=== PATIENT | male | born 1975 | race Caucasian/White ===

== ENCOUNTER 2024-03-01 03:59 | Inpatient (IN) ==
--- NOTE | 2024-03-01 04:15 | Emergency Department Note ---
History of Present Illness General Chief Complaint: Chest Pain Stated Complaint: CHEST PAIN Time Seen by Provider: 03/01/24 04:08 History of Present Illness Provider Complaint: chest pain Time: 02:30 Duration: constant Onset: during rest Pain Location: left chest Pain Radiation: LUE and neck Severity: moderate Maximum Pain Intensity: 5 Quality: + heaviness Relieved By: + nothing Exacerbated By: + nothing Context: no recent illness, no recent surgery, no recent immobilization, no recent travel, no trauma/injury or no new medications Associated symptoms: no nausea, no vomiting, no diaphoresis, no dyspnea, no syncope, no palpitations, no fever, no cough or no leg swelling Treatments prior to arrival: none Home Medications Medication Instructions Recorded Confirmed Type aspirin 81 mg tablet,delayed 81 mg PO DAILY 05/12/20 10/11/21 History release (Adult Low Dose Aspirin) metoprolol tartrate 25 mg tablet 25 mg PO Q12H 05/12/20 10/11/21 History atorvastatin 40 mg tablet 40 mg PO DAILY #90 tabs 10/11/21 10/11/21 Rx lisinopril 20 mg tablet 20 mg PO DAILY #90 tabs 10/11/21 10/11/21 Rx Allergies Allergy/AdvReac Type Severity Reaction Status Date / Time No Known Allergies Allergy Verified 10/11/21 11:56 Past Med/Surg History Problem List (Updated 03/01/24 @ 05:19 by Orion Leger MD) STEMI (ST elevation myocardial infarction) (Acute) Fatigue Hyperlipidemia DVT prophylaxis Status post percutaneous transluminal coronary angioplasty History of ST elevation myocardial infarction (STEMI) PCI to the LAD 2013, PCI to the LAD 2018 with likely acute marginal thrombosis in 2018 Chest pain (Acute) Elevated troponin (Acute) Elevated lipase (Acute) Tobacco abuse (Acute) Pilonidal cyst with abscess (Acute) Pilonidal cyst with abscess (Acute) Medical History Ischemic cardiomyopathy Marijuana use Chronic alcohol use Impaired glucose tolerance HTN (hypertension) CAD (coronary artery disease) Acute myocardial infarction (09/27/13) Surgical History H/O heart artery stent Family History Other No significant family history Social History Smoking Status: Current every day smoker Tobacco Type: Cigarettes Cigarettes Per Day: 1 pack a day; Do You Dip or Chew Tobacco: Yes (occassionally); Hx Alcohol Use: Yes Alcohol type: beer Hx Substance Use: Yes Last Used Substance: Days (ago) Preferred Language: Citizen Of [place] Communication Ability: Effective Visual Impairment: No Limitations Hearing Ability: Normal Hearing Aid Mechanic Required: No Beliefs That Will Affect Care: None Current Living Situation: Spouse and Family Feels Safe at Home: Yes Assistive Devices: None Physical Exam Vital Signs Vital Signs - 24 hr 03/01/24 04:02 03/01/24 04:11 03/01/24 04:20 Temperature 36.5 C Temperature Source Temporal Artery Scan Pulse Rate 90 95 H 92 H Pulse Rhythm Regular Respiratory Rate 22 22 Respiratory Effort / Characteristics Non-Labored Spontaneous Respiratory Depth Normal Respiratory Pattern Regular Blood Pressure 138/128 H Blood Pressure Mean 131 Blood Pressure Position Sitting Pulse Oximetry 98 98 Oxygen Delivery Method Room Air Room Air Oxygen Flow Rate 0 Sepsis Recent Fever Within 48 Hours No Sepsis New/Unexplained Change in Mental Status N/A Sepsis Action Taken by Nursing No Action Required Physical Exam GENERAL: Patient appears distressed. HENT: Exam performed. - Head: Normocephalic and atraumatic. EYES: Conjunctivae and EOM are normal. Right eye exhibits no discharge. Left eye exhibits no discharge. No scleral icterus. NECK: Normal range of motion. Neck supple. No JVD present. CV: Normal rate, regular rhythm, normal heart sounds and intact distal pulses. There is no peripheral edema. Palpable radial pulses bue. PULM/CHEST: Effort normal and breath sounds normal. No respiratory distress. No stridor. no wheezes. no rales. ABD: The abdomen is soft. There is no tenderness. NEURO: Motor and sensation grossly intact. SKIN: diaphoretic. PSYCH: normal mood and affect. Behavior is normal. Judgment and thought content normal. Course Course 0409: The patient was evaluated in room A2. A complete history and physical exam was performed Cardiac monitoring: An order was placed for continuous cardiac monitoring. The monitor shows a rate of 90 with sinus rhythm interpreted by me EKG shows STEMI. Heart alert called. Patient treated with aspirin. Sublingual nitroglycerin ordered for the patient. 0443: Patient was treated with 2 additional sublingual nitroglycerin 100 fentanyl and 1 mg Ativan. Chest x-ray negative. Dr. Austin at bedside evaluated the patient. He asked for 180 of Brilinta and 5000 units of heparin to be given to the patient. Will plan on taking the patient to the [facility]. Administered Medications Nitroglycerin (Nitroglycerin Sl 0.4 Mg/Tab Tab) 0.4 mg SL Q5M PRN PRN Reason: Chest Pain Stop: 03/31/24 04:11 Last Admin: 03/01/24 04:20 Dose: 0.4 mg Documented By: Admin: 03/01/24 04:18 Dose: 0.4 mg Documented By: MARCEL Discontinued Medications Aspirin (Aspirin Chew 324 Mg) 324 mg PO NOW STA Stop: 03/01/24 04:09 Last Admin: 03/01/24 04:18 Dose: 324 mg Documented By: MARCEL Fentanyl Citrate (Fentanyl Citrate Pf 100 Mcg/2 Ml Vial) 100 mcg IV NOW STA Stop: 03/01/24 04:28 Last Admin: 03/01/24 04:34 Dose: 100 mcg Documented By: [facility] Fentanyl Citrate (Fentanyl Citrate Pf 100 Mcg/2 Ml Vial) Confirm Administered Dose 100 mcg .ROUTE .STK-MED ONE Stop: 03/01/24 04:29 Last Admin: 03/01/24 05:02 Dose: Not Given Documented By: [facility] Heparin Sodium (Porcine) (Heparin Sod (Porcine) 1000 Unit/Ml) 5,000 units IV NOW ONE Stop: 03/01/24 04:44 Last Admin: 03/01/24 04:47 Dose: 5,000 units Documented By: [facility] Co-signed By: YAQUELIN Heparin Sodium/Sodium Chloride (Heparin In Nss Infusion 1000 Unit/500 Ml (2 U/Ml) Bag) Confirm Administered Dose 3,000 units IV .STK-MED ONE Stop: 03/01/24 04:38 Last Admin: 03/01/24 05:13 Dose: 3,000 units Documented By: DAKOTA Lorazepam (Lorazepam 1 Mg/1 Ml Syr Ed Inj Use) 1 mg IV ONE STA Stop: 03/01/24 04:36 Last Admin: 03/01/24 04:39 Dose: 1 mg Documented By: [facility] Lorazepam (Lorazepam 1 Mg/1 Ml Syr Ed Inj Use) Confirm Administered Dose 1 mg .ROUTE .STK-MED ONE Stop: 03/01/24 04:38 Last Admin: 03/01/24 05:04 Dose: Not Given Documented By: [facility] Nicardipine HCl (Nicardipine 2,000 Mcg/20 Ml Syr) Confirm Administered Dose 2,000 mcg .ROUTE .STK-MED ONE Stop: 03/01/24 04:38 Last Admin: 03/01/24 05:14 Dose: 2,000 mcg Documented By: DAKOTA Nitroglycerin (Nitroglycerin Sl 0.4 Mg/Tab Tab) Confirm Administered Dose 0.4 mg .ROUTE .STK-MED ONE Stop: 03/01/24 04:13 Last Admin: 03/01/24 04:18 Dose: Not Given Documented By: MARCEL Nitroglycerin (Nitroglycerin 2% Ointment 30gm Tube) Confirm Administered Dose 18 inch EXT .STK-MED ONE Stop: 03/01/24 04:29 Last Admin: 03/01/24 05:02 Dose: Not Given Documented By: [facility] Nitroglycerin/Dextrose (Nitroglycerin/D5w 100mcg/Ml 20ml Syr) Confirm Administered Dose 2,000 mcg .ROUTE .STK-MED ONE Stop: 03/01/24 04:38 Last Admin: 03/01/24 05:15 Dose: 2,000 mcg Documented By: DAKOTA Ticagrelor (Ticagrelor 90 Mg Tab) 180 mg PO ONE ONE Stop: 03/01/24 04:44 Last Admin: 03/01/24 04:47 Dose: 180 mg Documented By: [facility] Medical Decision Making Laboratory Data Attestation: I reviewed the patient's lab results. 03/01/24 04:15 03/01/24 04:15 Labs: Lab Results 03/01/24 03/01/24 Range/Units 04:15 04:32 WBC 10.84 H (4.8-10.8) K/ul RBC 5.18 (4.70-6.10) M/uL Hgb 16.3 (14.0-18.0) g/dl POC Hgb 16.7 (14.0-18.0) g/dl Hct 47.6 (42.0-52.0) % POC Hct 49 (42-52) % MCV 91.9 (80.0-100.0) fL MCH 31.5 (25.0-34.0) pg MCHC 34.2 (32.0-36.0) g/dL RDW Std Deviation 44.0 (36.4-46.3) fL RDW Coeff of [place] 12.9 (11.5-14.5) % Plt Count 180 (130-400) K/uL MPV 12.8 H (9.4-12.4) fL Immature Gran % (Auto) 0.4 % Neut % (Auto) 72.1 % Lymph % (Auto) 21.4 % [place] % (Auto) 4.2 % Eos % (Auto) 1.1 % Baso % (Auto) 0.8 % Neut # (Auto) 7.81 H (1.40-6.50) K/uL Lymph # (Auto) 2.32 (1.20-3.40) K/uL [place] # (Auto) 0.46 (0.11-0.59) K/uL Eos # (Auto) 0.12 (0.00-0.50) K/uL Baso # (Auto) 0.09 (0.00-0.20) K/uL Immature Gran # (Auto) 0.04 (0.01-0.20) K/uL PT 10.9 (9.0-12.0) Seconds INR 1.0 (0.9-1.1) APTT 25 (21-31) Seconds PTT Ratio 0.9 POC Sodium 135 (135-144) mmol/L Sodium 135 L (136-145) mmol/L POC Potassium 3.5 (3.3-5.0) mmol/L Potassium 3.8 (3.5-5.1) mmol/L POC Chloride 99 L (101-112) mmol/L Chloride 98 (98-107) mmol/L Carbon Dioxide 28 (21-32) mmol/L POC Total CO2 21 L (24-31) mmol/L Anion Gap 9 (3-11) POC Anion Gap 20.0 (16-25) mmol/L POC BUN 9 (7-18) mg/dl BUN 10 (6-23) mg/dl Creatinine 0.74 (0.6-1.4) mg/dl POC Creatinine 0.5 L (0.6-1.3) mg/dl Est Cr Clr Drug Dosing 134.7 ml/min eGFR 110.39 BUN/Creatinine Ratio 13.5 (10-20) Glucose 249 H (70-99(Fasting)) mg/dl POC Glucose (other) 258 H (70-99) mg/dl Calcium 10.1 (8.6-10.3) mg/dl POC Ioniz Calcium Shanda 1.14 (1.12-1.32) mmol/l Magnesium 1.9 (1.7-2.4) mg/dl Total Bilirubin 0.5 (0.2-1.0) mg/dl AST 56 H (13-39) U/L ALT 63 H (7-52) U/L Alkaline Phosphatase 91 (34-104) U/L Total Creatine Kinase 285 H (30-223) U/L B-Natriuretic Peptide 86 (0-100) pg/ml Total Protein 8.2 (6.0-8.3) gm/dl Albumin 4.7 (3.4-5.0) gm/dl Globulin 3.5 (2.5-4.0) gm/dl Albumin/Globulin Ratio 1.3 (0.9-2) Lipase 72 (11-82) U/L TSH 2.304 (0.300-4.500) uIu/ml Imaging Data Chest x-ray: Attestation: I personally reviewed and interpreted this imaging study as follows: My impression: Chest x-ray negative. Airway clear. No pneumothorax. No consolidation. No cardiomegaly or cephalization.. No free air under the diaphragm. No fractures of the skeletal structures. Radiologist's impression: Chest X-Ray 03/01/24 04:08 EXAM: XR chest 1V portable CLINICAL HISTORY: HEART ALERT [facility] INPATIENT TECHNIQUE: An X-ray image of the chest is obtained in AP projection. COMPARISON: No prior studies are available for comparison. FINDINGS: Pulmonary Parenchyma: Increase of bronchovascular markings is noted bilaterally with mild peribronchial cuffing. A small round nodular opacity is noted at right lower zone, correlate with lateral view or CT for better assessment. Lungs are clear bilaterally. No evidence of consolidation, collapse, or focal opacities. No evidence of pleural effusion or pleural thickening. Heart and Mediastinum: Heart size and shape are normal. No mediastinal widening or masses. No hilar or mediastinal lymphadenopathy. Bony Thorax: Bony thorax appears intact without fractures or deformities. Soft Tissues: Soft tissues overlying the chest wall are unremarkable. IMPRESSION: 1. Increase of bronchovascular markings is noted bilaterally with mild peribronchial cuffing. 2. A small round nodular opacity is noted at the right lower zone, correlate with CXR lateral view or CT for better assessment. Electronically signed by Brooks Patrick 03-01-2024 04:57 AM ECG Data Attestation: I personally reviewed and interpreted this ECG as follows: Indication: chest pain Rate (beats per minute): 87 Rhythm: normal sinus Findings: + ST elevation (II, III, aVF V2, V3, ); no prolonged QT MDM Narrative 0409: The patient was evaluated in room A2. A complete history and physical exam was performed Cardiac monitoring: An order was placed for continuous cardiac monitoring. The monitor shows a rate of 90 with sinus rhythm interpreted by me EKG shows STEMI. Heart alert called. Patient treated with aspirin. Sublingual nitroglycerin ordered for the patient. 0443: Patient was treated with 2 additional sublingual nitroglycerin 100 fentanyl and 1 mg Ativan. Chest x-ray negative. Dr. Austin at bedside evaluated the patient. He asked for 180 of Brilinta and 5000 units of heparin to be given to the patient. Will plan on taking the patient to the [facility]. Impression & Plan STEMI (ST elevation myocardial infarction) Critical Care Time Critical Care Time: Yes Total Critical Care Time: 36 I have personally spent greater than 36 minutes of critical care time in the direct management of this patient. This includes bedside care, interpretation of diagnostic studies, and testing, discussion with consultants, patient, and family members, and other required patient management activities. This 36 minutes is in excess of all separately billable procedures. Discharge Plan Visit Data Chief Complaint: Chest Pain Stated Complaint: CHEST PAIN ED Provider: Orion Leger Discharge Problem: STEMI (ST elevation myocardial infarction) Patient Disposition: Admitted As Inpatient Forms Stand Alone Forms: My [facility] [employer] Prescriptions Prescriptions: No Action aspirin [Adult Low Dose Aspirin] 81 mg tablet,delayed release (DR/EC) 81 mg PO DAILY metoprolol tartrate 25 mg tablet 25 mg PO Q12H atorvastatin 40 mg tablet 40 mg PO DAILY Qty: 90 3RF lisinopril 20 mg tablet 20 mg PO DAILY Qty: 90 3RF Referrals Referrals: PCP,NO [Primary Care Provider] - Discharge Problem: STEMI (ST elevation myocardial infarction) Qualifiers: Involved coronary artery: unspecified coronary artery Qualified Code(s): I21.3 - ST elevation (STEMI) myocardial infarction of unspecified site
[2024-03-01] MEDS: ASPIRIN CHEW 324 MG PO STA (04:18)
[2024-03-01] MEDS: NITROGLYCERIN SL 0.4 MG/TAB TAB ONE (04:18)
[2024-03-01] MEDS: NITROGLYCERIN SL 0.4 MG/TAB TAB SL PRN (04:18)
[2024-03-01] MEDS: fentaNYL citrate PF 100 MCG/2 ML VIAL IV STA (04:34)
[2024-03-01] MEDS: LORazepam 1 MG/1 ML SYR ED Inj Use IV STA (04:39)
[2024-03-01 04:44] LABS: iSTAT Creatinine 0.5 mg/dl (0.6-1.3); iSTAT Hemoglobin 16.7 g/dl (14.0-18.0); iSTAT Ionized Calcium 1.14 mmol/l (1.12-1.32); iSTAT Potassium 3.5 mmol/L (3.3-5.0)
[2024-03-01 04:46] LABS: Basophils # (auto) 0.09 K/uL (0.00-0.20); Basophils % (auto) 0.8 %; Eosinophils # (auto) 0.12 K/uL (0.00-0.50); Eosinophils % (auto) 1.1 %; Hematocrit (blood only) 47.6 % (42.0-52.0); Hemoglobin 16.3 g/dl (14.0-18.0); Immature Granulocytes # (auto) 0.04 K/uL (0.01-0.20); Immature Granulocytes % (auto) 0.4 %; Lymphocytes # (auto) 2.32 K/uL (1.20-3.40); Lymphocytes % (auto) 21.4 %; Mean Corpuscular Hemoglobin 31.5 pg (25.0-34.0); Mean Corpuscular Hgb Conc 34.2 g/dL (32.0-36.0); Mean Corpuscular Volume 91.9 fL (80.0-100.0); Mean Platelet Volume 12.8 fL (9.4-12.4); Monocytes # (auto) 0.46 K/uL (0.11-0.59); Monocytes % (auto) 4.2 %; Neutrophils # (auto) 7.81 K/uL (1.40-6.50); Neutrophils % (auto) 72.1 %; Platelet Count 180 K/uL (130-400); RDW Coefficient of Variation 12.9 % (11.5-14.5); Red Blood Count 5.18 M/uL (4.70-6.10); White Blood Count 10.84 K/ul (4.8-10.8)
[2024-03-01] MEDS: HEPARIN SOD (PORCINE) 1000 UNIT/ML IV ONE (04:47)
[2024-03-01] MEDS: TICAGRELOR 90 MG TAB PO ONE (04:47)
--- NOTE | 2024-03-01 04:47 | Pre Anesthesia Assessment ---
Date of Service March 01, 2024 Pre Sedation Assessment Vital Signs Temp Pulse Resp BP Pulse Ox O2 Del Method 03/01/24 04:11 95 H 03/01/24 04:02 97.7 F 90 22 138/128 H 98 Room Air Cardiovascular + regular rate Respiratory + respiratory effort normal Pre-Sedation Airway Assessment Smoking Status: Current every day smoker Hx Sleep Apnea: No Hx Difficult Intubation: No Thyromental Distance: < 3.5 Finger Breadths Oral Cavity: + Dental Abnormalities Mallampati Class: III ASA: ASA4 Procedure Planning Contraindications for Sedation: none Current Medications Reviewed: Yes Notes The planned sedation has been discussed with the patient. Informed Consent was obtained. I have identified the patient, determined the appropriateness of sedation and have assessed the patient immediately prior to the procedure. All medicine(s) and interventions are by my order.
--- NOTE | 2024-03-01 04:49 | Cardiology Consultation ---
Date of Consultation March 01, 2024 Assessment & Plan (1) STEMI (ST elevation myocardial infarction): Presentation consistent with anterior STEMI and recommend proceeding with emergent cardiac catheterization and likely primary PCI. No apparent contraindications to procedure. Discussed risks, benefits, alternatives of procedure with patient and they are willing to proceed. Given IV heparin and ticagrelor 180 mg in the ED. Further recommendations pending findings of coronary angiography. History of Present Illness History of Present Illness Mr. Guevara is a pleasant 49-year-old man here with acute chest pain and ECG co ncerning for acute NE. Patient seen emergently in the ED after heart alert activated on arrival. Past cardiac history remarkable for acute MIx2 initially in 2013 with stent to LAD. Had last NE in 2017 at which time he had severe LAD in-stent restenosis requiring repeat stent and subtotally occluded acute marginal that was medically managed. Has intermittently followed with Dr. Smith since that time. Last echo in 2021 showed ischemic cardiomyopathy with a EF of 45 to 50% with basal inferior akinesis and hypokinetic apical anterior septum. Currently states lost his insurance and not taking any medications. For the last 4 to 5 days has been having stuttering substernal chest pain radiating to his arm reminiscent of what he had before with NE. Last night approximately 7 PM had severe episode of chest pain that lasted for minutes. Was able to go to sleep but then was woken up this morning around 2 AM with severe chest pain, vomiting, diarrhea. On arrival hypertensive, severe pain. ECG showed recurrent anterior ST elevations, old inferior Q waves. Social history: Ongoing smoker, heavy alcohol use up to 12 beers a day Allergies Allergy/AdvReac Type Severity Reaction Status Date / Time No Known Allergies Allergy Verified 10/11/21 11:56 Home Medications Medication Instructions Recorded Confirmed Type aspirin 81 mg tablet,delayed 81 mg PO DAILY 05/12/20 10/11/21 History release (Adult Low Dose Aspirin) metoprolol tartrate 25 mg tablet 25 mg PO Q12H 05/12/20 10/11/21 History atorvastatin 40 mg tablet 40 mg PO DAILY #90 tabs 10/11/21 10/11/21 Rx lisinopril 20 mg tablet 20 mg PO DAILY #90 tabs 10/11/21 10/11/21 Rx Patient History Medical History Ischemic cardiomyopathy Marijuana use Chronic alcohol use Impaired glucose tolerance HTN (hypertension) CAD (coronary artery disease) Acute myocardial infarction (09/27/13) Surgical History H/O heart artery stent Family History Other No significant family history Social History Smoking Status: Current every day smoker Tobacco Type: Cigarettes Cigarettes Per Day: 1 pack per day; Second Hand Exposure: No; Do You Dip or Chew Tobacco: No; Tobacco Cessation Education Requested by Patient: No Hx Alcohol Use: Yes Alcohol type: beer Hx Substance Use: Yes Last Used Substance: Unknown Preferred Language: [place] Communication Ability: Effective Visual Impairment: No Limitations Hearing Ability: Normal Instructional Media Services Technician Required: No Beliefs That Will Affect Care: None Current Living Situation: Significant Other Other Information That Helps Us Care for You: Yes (patient does not have insurance) Feels Safe at Home: Yes Safety Concerns: Feels Safe At This Time Assistive Devices: None Review of Systems Review of Systems: Not completed in setting of emergent situation Physical Exam Physical Exam: General: Uncomfortable HEENT: Sclerae anicteric Lungs: Clear anteriorly Cardiac: Tachycardic, regular, no murmurs Vascular: 2+ radial bilaterally Abdomen: Soft, nontender Extremities: Well perfused, no peripheral edema Neuro: Nonfocal Psych: Alert orient x3, normal affect and mood Results & Data Vital Signs (Past 12 Hours) Vital Signs Temp Pulse Resp BP Pulse Ox O2 Del Method 03/01/24 04:11 95 H 03/01/24 04:02 97.7 F 90 22 138/128 H 98 Room Air PG Care Time/CCT Total # of Minutes Spent Total Time Spent with Patient: Total time spent is greater than 50% in coordination of care (as documented) at patient's floor/unit and/or counseling patient: Coding Level of Care Code 80190 OFFICE CONSULT LVL Diagnoses STEMI (ST elevation myocardial infarction) I21.3
--- NOTE | 2024-03-01 04:57 | XRay Report ---
EXAM: XR chest 1V portable CLINICAL HISTORY: HEART ALERT [facility] INPATIENT TECHNIQUE: An X-ray image of the chest is obtained in AP projection. COMPARISON: No prior studies are available for comparison. FINDINGS: Pulmonary Parenchyma: Increase of bronchovascular markings is noted bilaterally with mild peribronchial cuffing. A small round nodular opacity is noted at right lower zone, correlate with lateral view or CT for better assessment. Lungs are clear bilaterally. No evidence of consolidation, collapse, or focal opacities. No evidence of pleural effusion or pleural thickening. Heart and Mediastinum: Heart size and shape are normal. No mediastinal widening or masses. No hilar or mediastinal lymphadenopathy. Bony Thorax: Bony thorax appears intact without fractures or deformities. Soft Tissues: Soft tissues overlying the chest wall are unremarkable. IMPRESSION: 1. Increase of bronchovascular markings is noted bilaterally with mild peribronchial cuffing. 2. A small round nodular opacity is noted at the right lower zone, correlate with CXR lateral view or CT for better assessment. Electronically signed by Brooks Patrick 03-01-2024 04:57 AM
[2024-03-01 04:58] LABS: Albumin Globulin Ratio 1.3 (0.9-2); Albumin Level 4.7 gm/dl (3.4-5.0); BUN Creatinine Ratio 13.5 (10-20); Bilirubin,Total 0.5 mg/dl (0.2-1.0); Calcium 10.1 mg/dl (8.6-10.3); Creatinine Clr Calc Pharmacy 134.7 ml/min; Globulin 3.5 gm/dl (2.5-4.0); Magnesium 1.9 mg/dl (1.7-2.4); Potassium 3.8 mmol/L (3.5-5.1); Total Protein 8.2 gm/dl (6.0-8.3)
[2024-03-01] MEDS: NITROGLYCERIN 2% OINTMENT 30GM TUBE EXT ONE (05:02)
[2024-03-01] MEDS: fentaNYL citrate PF 100 MCG/2 ML VIAL ONE ×4 (05:02→14:53)
[2024-03-01] MEDS: LORazepam 1 MG/1 ML SYR ED Inj Use ONE (05:04)
[2024-03-01 05:08] LABS: Partial Thromboplastin Ratio 0.9; Partial Thromboplastin Time 25 Seconds (21-31); Prothrombin Time 10.9 Seconds (9.0-12.0)
[2024-03-01 05:13] LABS: Thyroid Stimulating Hormone 2.304 uIu/ml (0.300-4.500)
[2024-03-01] MEDS: niCARdipine 2,000 MCG/20 ML SYR ONE (05:14)
[2024-03-01] MEDS: NITROGLYCERIN/D5W 100MCG/ML 20ML SYR ONE (05:15)
[2024-03-01 05:39] LABS: Troponin I High Sensitivity 992.9 pg/ml (0-20)
[2024-03-01] MEDS: HEPARIN (PORCINE) 1000 UNIT/ML 10 ML (CATH LAB USE ONLY) ONE ×2 (07:14→07:23)
[2024-03-01] MEDS: MIDAZOLAM HCL 1 MG/ML 2ML VIAL ONE ×5 (07:14→07:23)
[2024-03-01] MEDS: OPTIRAY 350 ONE (07:20)
--- NOTE | 2024-03-01 08:25 | Post Anesthesia Assessment ---
Date of Service March 01, 2024 Post Sedation Assessment Vital Signs Temp Pulse Pulse Resp BP BP Pulse Ox 03/01/24 07:59 97.7 F 03/01/24 07:54 03/01/24 07:48 80 18 158/113 H 96 03/01/24 07:39 83 20 97 03/01/24 04:50 82 22 147/106 H 97 03/01/24 04:45 82 22 147/106 H 97 03/01/24 04:40 86 22 168/112 H 96 03/01/24 04:35 95 H 22 160/103 H 96 03/01/24 04:30 92 H 22 152/106 H 96 03/01/24 04:27 91 H 22 143/108 H 98 03/01/24 04:23 91 H 22 161/118 H 03/01/24 04:20 115 H 22 161/118 H 03/01/24 04:20 92 H 22 98 03/01/24 04:18 87 22 128/103 H 95 03/01/24 04:12 87 24 172/117 H 97 03/01/24 04:11 95 H 03/01/24 04:02 97.7 F 90 22 138/128 H 98 O2 Del Method O2 Flow Rate 03/01/24 07:59 03/01/24 07:54 Room Air 03/01/24 07:48 03/01/24 07:39 03/01/24 04:50 Room Air 03/01/24 04:45 Room Air 03/01/24 04:40 Room Air 03/01/24 04:35 Room Air 03/01/24 04:30 Room Air 03/01/24 04:27 Room Air 03/01/24 04:23 03/01/24 04:20 03/01/24 04:20 Room Air 0 03/01/24 04:18 Room Air 03/01/24 04:12 Room Air 03/01/24 04:11 03/01/24 04:02 Room Air Recovery Score Activity: Moves 4 extremities Respiration: Deep Breath/Cough Circulation: +/-20% PreAnes Value Consciousness: Fully Awake Oxygen Saturation: O2 needed for >90% Discharge Sedation Level of Care: Fast Track Phase II Post Sedation Plan On clinical assessment, the patient appears to have tolerated the sedation without complications. Patient is recovering as anticipated. Patient will continue to be monitored by nursing and may be discharged when sedation discharge criteria are met per below protocol. Upon Completions of procedure up to 15 minutes continue every 5 minute vital signs and the P.A.R. score; then discharge to a Phase I or Fast Track to Phase II per the following guidelines: * Discharge Patient to appropriate Phase II area if PAR is 8 or greater or return to pre- procedure baseline. The post - procedure orders will be as directed. * If PAR score is less than 8 or not return to pre-procedure baseline then patient will follow Phase I monitoring till PAR is reached for Phase II. The Phase I may be done in procedure room or may call to secure a Phase I area. * If naloxone or flumazenil are used for reversal, hold in Phase I for continued monitoring from when last reversal dose was given for a minimum of 60 minutes or longer pending the nurse and/or physician discretion of patient condition before discharge to Phase II. Please call the Sedation Physician to re-evaluate and complete post-note for discharge to Phase II area. Do NOT discharge from procedure sedation or Phase 1 until post- sedation evaluation note is complete by procedure /sedation MD Sedation Discharge Instructions to be given to the patient at discharge to home.
--- NOTE | 2024-03-01 08:29 | Post Operative Brief Note ---
Cardiology Brief Post Op Date of Surgery March 01, 2024 Pre & Post Diagnosis Operation Date: 03/01/24 04:30 <No data on this case meets the specified criteria> Procedure PCI to LAD with 2 MARY KAY Insertion of IABP Medical Records Secretary Bhavesh Austin MD Central Communications Specialist Robbie Estimated Blood Loss 30 Findings See Below Severe diffuse proximal to mid LAD disease with in-stent restenosis stenosis up to 98% Ramus widely patent Circumflex small with moderate to severe diffuse disease RCA dominant, subtotal middistal occlusion with [id number] collaterals Successful PCI of LAD with 2 MARY KAY Attempted intervention to RCA but lesion appears more chronic and well collateralized. IABP placed in the setting of complex multivessel disease If remains chest pain-free and hemodynamically stable plan to remove IABP later today. Anesthesia Type RN Sedation Complications none Disposition Accompanied Patient To Recovery: Yes Disposition: Surgical ICU
[2024-03-01 08:46] LABS: Troponin I High Sensitivity 26301.6 pg/ml (0-20)
--- NOTE | 2024-03-01 08:52 | History & Physical Report ---
Date of Service March 01, 2024 Assessment & Plan (1) STEMI (ST elevation myocardial infarction): Plan: 49-year-old male with a history of coronary disease previous stent placed in 2018 presents with chest pain concern for STEMI taken emergently to the [facility] where the patient had in-stent stenosis in his LAD and had 2 drug-eluting stents placed in his LAD. Patient previous had a STEMI in 2014 was noncompliant with medications previous tobacco use and also alcohol and substance abuse. arrives to icu on balloon pump Patient is on aspirin Brilinta atorvastatin, previously has been on metoprolol given HFrEF on lisinopril (2) Chronic alcohol use: Plan: pt on awss scale continue to survey for withdrawal Admission and Anticipated Discharge Date Admission Date: March 01, 2024 History of Present Illness Primary Care Provider: NO PCP pt presented with stuttering angina and concern for STEMI history of Mi in 2013 with stent. in stent stenosis in 2018 with repeat stent, history of compliance challenges, iscmo with EF 45-50% did have emergent stent x 2 of instent stenosis LAD and arrives to icu on inta arotic balloon pump Allergies Allergy/AdvReac Type Severity Reaction Status Date / Time No Known Allergies Allergy Verified 10/11/21 11:56 Home Medications Medication Instructions Recorded Confirmed Type aspirin 81 mg tablet,delayed 81 mg PO DAILY 05/12/20 10/11/21 History release (Adult Low Dose Aspirin) metoprolol tartrate 25 mg tablet 25 mg PO Q12H 05/12/20 10/11/21 History atorvastatin 40 mg tablet 40 mg PO DAILY #90 tabs 10/11/21 10/11/21 Rx lisinopril 20 mg tablet 20 mg PO DAILY #90 tabs 10/11/21 10/11/21 Rx Past Med/Surg History Problem List (Updated 03/01/24 @ 10:09 by Kyleigh Asif MD, [facility]) Alcohol use disorder STEMI (ST elevation myocardial infarction) (Acute) Fatigue Hyperlipidemia DVT prophylaxis Status post percutaneous transluminal coronary angioplasty History of ST elevation myocardial infarction (STEMI) PCI to the LAD 2013, PCI to the LAD 2017 with likely acute marginal thrombosis in 2018 Chest pain (Acute) Elevated troponin (Acute) Elevated lipase (Acute) Tobacco abuse (Acute) Pilonidal cyst with abscess (Acute) Pilonidal cyst with abscess (Acute) Medical History Ischemic cardiomyopathy Marijuana use Chronic alcohol use Impaired glucose tolerance HTN (hypertension) CAD (coronary artery disease) Acute myocardial infarction (09/27/13) Surgical History H/O heart artery stent Family History Other No significant family history Social History Smoking Status: Current every day smoker Tobacco Type: Cigarettes Cigarettes Per Day: 1 pack per day; Second Hand Exposure: No; Do You Dip or Chew Tobacco: No; Tobacco Cessation Education Requested by Patient: No Hx Alcohol Use: Yes Alcohol type: beer Hx Substance Use: Yes Last Used Substance: Unknown Preferred Language: Turkmen Communication Ability: Effective Visual Impairment: No Limitations Hearing Ability: Normal Finisher Screwdown Required: No Beliefs That Will Affect Care: None Current Living Situation: Significant Other Other Information That Helps Us Care for You: Yes (patient does not have insurance) Feels Safe at Home: Yes Safety Concerns: Feels Safe At This Time Assistive Devices: None Physical Exam Physical Exam: Pleasant, no immediate distress, at bedside no chest pain, cardiac exam is regular lungs are clear balloon pump in right groin, distal pulses right leg strong Results & Data Results & Data Vital Signs (Past 12 Hours) Vital Signs Temp Pulse Pulse Resp BP BP Pulse Ox 03/01/24 08:33 76 14 150/117 H 95 03/01/24 08:24 82 20 153/106 H 96 03/01/24 08:23 03/01/24 08:00 83 20 155/103 H 95 03/01/24 07:59 97.7 F 03/01/24 07:54 03/01/24 07:48 80 18 158/113 H 96 03/01/24 07:39 83 20 97 03/01/24 04:50 82 22 147/106 H 97 03/01/24 04:45 82 22 147/106 H 97 03/01/24 04:40 86 22 168/112 H 96 03/01/24 04:35 95 H 22 160/103 H 96 03/01/24 04:30 92 H 22 152/106 H 96 03/01/24 04:27 91 H 22 143/108 H 98 03/01/24 04:23 91 H 22 161/118 H 03/01/24 04:20 115 H 22 161/118 H 03/01/24 04:20 92 H 22 98 03/01/24 04:18 87 22 128/103 H 95 03/01/24 04:12 87 24 172/117 H 97 03/01/24 04:11 95 H 03/01/24 04:02 97.7 F 90 22 138/128 H 98 O2 Del Method O2 Flow Rate 03/01/24 08:33 03/01/24 08:24 03/01/24 08:23 Room Air 03/01/24 08:00 03/01/24 07:59 03/01/24 07:54 Room Air 03/01/24 07:48 03/01/24 07:39 03/01/24 04:50 Room Air 03/01/24 04:45 Room Air 03/01/24 04:40 Room Air 03/01/24 04:35 Room Air 03/01/24 04:30 Room Air 03/01/24 04:27 Room Air 03/01/24 04:23 03/01/24 04:20 03/01/24 04:20 Room Air 0 03/01/24 04:18 Room Air 03/01/24 04:12 Room Air 03/01/24 04:11 03/01/24 04:02 Room Air Laboratory Results review cbc review chemistry review troponin 90K PG Care Time/CCT Total # of Minutes Spent Total Time Spent with Patient: Total time spent is greater than 50% in coordination of care (as documented) at patient's floor/unit and/or counseling patient: Coding Level of Care Code 66861 INT INP/OBS CARE 3/75MIN Diagnoses STEMI (ST elevation myocardial infarction) I21.3 Involved coronary artery: unspecified coronary artery Chronic alcohol use Z72.89 (1) STEMI (ST elevation myocardial infarction) Involved coronary artery: unspecified coronary artery Qualified Code(s): I21.3 - ST elevation (STEMI) myocardial infarction of unspecified site
--- NOTE | 2024-03-01 09:24 | Critical Care Consultation ---
Date of Consultation March 01, 2024 Assessment & Plan (1) STEMI (ST elevation myocardial infarction): (2) Hyperlipidemia: (3) CAD (coronary artery disease): (4) Impaired glucose tolerance: (5) Marijuana use: (6) Alcohol use disorder: (7) Tobacco abuse: Plan -- STEMI Status post drug-eluting stent x 2 in LAD Patient does have significant collaterals because of chronic occlusion of the RCA He was complaining of significant pain for which intra-aortic balloon pump was placed Cardiology will be managing it Continue with dual antiplatelet therapy with high-dose statin TSH within normal limits -- Hypertension On metoprolol 25 mg twice daily as well as lisinopril 20 mg at home Resume the home medications -- Current smoker Approximately 69-[id number]-hybl smoking history --Impaired glucose ICU hypoglycemia protocol -- Heavy alcohol use Drinks 6-12 beers on a daily basis Per the patient on CIWA protocol --Prophylaxis VTE: IPC GI: Pantoprazole Lines: Peripheral, intra-aortic balloon pump from the right groin Diet: Cardiac Plan: Strict ins and outs Trend troponins and EKG Start lisinopril and metoprolol given the systolic blood pressure has been in the 150s Tylenol for the pain Potassium being replaced, follow magnesium and phosphorus Given the heavy alcohol use we will put the patient on CIWA protocol If the patient gets any significant chest pain or worsening chest pain then plan will be to transfer the patient for CABG evaluation If he is able to maintain pain-free then the plan is to discontinue intra-aortic balloon pump with a activated coagulation time is within normal limit Case was discussed with cardiology I have personally spent 42 minutes of critical care time in the direct management of this patient. This is a life/limb threatening event. This includes time spent evaluating patient, direct bedside care, chart review, placing orders, interpretation of diagnostic studies, discussion with consultants, patient, and family members, as well as other required patient management activities. This time is exclusive of all separately billable procedures, and teaching time and separate from and in addition to any other critical care service time. Please note the above document was generated using voice recognition software. It may contain grammatical, syntax or spelling errors. History of Present Illness Attending Physician: Kuldip Cornejo MD History of Present Illness 49-year-old male present to the hospital for chest pain Past medical history: Coronary artery disease, COPD The patient was sent to the ICU from [facility] with an intra-aortic balloon pump Signout was given by Dr. Austin At the time of examination patient was still in the the effects of anesthesia His systolic blood pressure was in the 150s diastolic in the 110s, heart rate in the 80s and respiratory rate in the mid teens He was saturating 96% on room air. Patient's girlfriend was also in the room. Patient complained of mild retrosternal chest pain nonradiating. But it has significantly improved compared to when he came to the hospital He was complaining of more pain in the right arm where they went through for the cardiac cath. There was no cyanosis, good capillary refill in the right fingers Denied any abdominal pain, no shortness of breath No fever or chills No dysuria Social history: 44-kfto-plda smoking history, currently smoking a pack a day, 12 beers a day Allergies Allergy/AdvReac Type Severity Reaction Status Date / Time No Known Allergies Allergy Verified 10/11/21 11:56 Home Medications Medication Instructions Recorded Confirmed Type aspirin 81 mg tablet,delayed 81 mg PO DAILY 05/12/20 10/11/21 History release (Adult Low Dose Aspirin) metoprolol tartrate 25 mg tablet 25 mg PO Q12H 05/12/20 10/11/21 History atorvastatin 40 mg tablet 40 mg PO DAILY #90 tabs 10/11/21 10/11/21 Rx lisinopril 20 mg tablet 20 mg PO DAILY #90 tabs 10/11/21 10/11/21 Rx Patient History Medical History Ischemic cardiomyopathy Marijuana use Chronic alcohol use Impaired glucose tolerance HTN (hypertension) CAD (coronary artery disease) Acute myocardial infarction (09/27/13) Surgical History H/O heart artery stent Family History Other No significant family history Social History Smoking Status: Current every day smoker Tobacco Type: Cigarettes Cigarettes Per Day: 1 pack per day; Second Hand Exposure: No; Do You Dip or Chew Tobacco: No; Tobacco Cessation Education Requested by Patient: No Hx Alcohol Use: Yes Alcohol type: beer Hx Substance Use: Yes Last Used Substance: Unknown Preferred Language: Vietnamese Communication Ability: Effective Visual Impairment: No Limitations Hearing Ability: Normal Undergraduate Advisor Required: No Beliefs That Will Affect Care: None Current Living Situation: Significant Other Other Information That Helps Us Care for You: Yes (patient does not have insurance) Feels Safe at Home: Yes Safety Concerns: Feels Safe At This Time Assistive Devices: None Review of Systems 2 Review of Systems: All systems reviewed & are unremarkable except as noted in HPI & below Physical Exam 2 Physical Exam: Constitutional: No acute distress HEENT: EOMI, PERRLA Respiratory system: Decreased air entry bilaterally, no wheeze, no rhonchi, no crackles CVS: S1-S2 positive, no murmurs or gallops Abdomen: Soft, nontender, nondistended, positive bowel sounds x4 Extremities: +2 pulses bilaterally left radialis/bilateral dorsalis pedis, no cyanosis, no edema Neuro: Awake alert oriented x3 Psych: Normal mood and affect G/U: No [place] Skin: no rashes, warm and dry Lymphatic: no cervical or axillary lymphadenopathy Results & Data Results & Data Vital Signs (Past 12 Hours) Vital Signs Temp Pulse Pulse Pulse Resp BP BP 03/01/24 09:06 78 15 148/104 H 03/01/24 09:00 82 137/102 H 03/01/24 08:54 77 15 152/109 H 03/01/24 08:36 80 150/117 H 03/01/24 08:33 76 14 150/117 H 03/01/24 08:24 82 20 153/106 H 03/01/24 08:23 03/01/24 08:00 83 20 155/103 H 03/01/24 07:59 36.5 C 03/01/24 07:54 03/01/24 07:48 82 155/103 H 03/01/24 07:48 80 18 158/113 H 03/01/24 07:39 83 20 03/01/24 04:50 82 22 147/106 H 03/01/24 04:45 82 22 147/106 H 03/01/24 04:40 86 22 168/112 H 03/01/24 04:35 95 H 22 160/103 H 03/01/24 04:30 92 H 22 152/106 H 03/01/24 04:27 91 H 22 143/108 H 03/01/24 04:23 91 H 22 161/118 H 03/01/24 04:20 115 H 22 161/118 H 03/01/24 04:20 92 H 22 03/01/24 04:18 87 22 128/103 H 03/01/24 04:12 87 24 172/117 H 03/01/24 04:11 95 H 03/01/24 04:02 36.5 C 90 22 138/128 H Pulse Ox O2 Del Method O2 Flow Rate 03/01/24 09:06 98 03/01/24 09:00 96 03/01/24 08:54 95 03/01/24 08:36 96 03/01/24 08:33 95 03/01/24 08:24 96 03/01/24 08:23 Room Air 03/01/24 08:00 95 03/01/24 07:59 03/01/24 07:54 Room Air 03/01/24 07:48 94 03/01/24 07:48 96 03/01/24 07:39 97 03/01/24 04:50 97 Room Air 03/01/24 04:45 97 Room Air 03/01/24 04:40 96 Room Air 03/01/24 04:35 96 Room Air 03/01/24 04:30 96 Room Air 03/01/24 04:27 98 Room Air 03/01/24 04:23 03/01/24 04:20 03/01/24 04:20 98 Room Air 0 03/01/24 04:18 95 Room Air 03/01/24 04:12 97 Room Air 03/01/24 04:11 03/01/24 04:02 98 Room Air Laboratory Results 03/01/24 04:15 03/01/24 04:15 Coding Level of Care Code 07665 CRITICAL CARE 1ST 30-74M Diagnoses STEMI (ST elevation myocardial infarction) I21.3 Involved coronary artery: unspecified coronary artery Hyperlipidemia E78.5 CAD (coronary artery disease) I25.10 Impaired glucose tolerance R73.02 Marijuana use F12.90 Alcohol use disorder F10.90 Tobacco abuse Z72.0 (1) STEMI (ST elevation myocardial infarction) Involved coronary artery: unspecified coronary artery Qualified Code(s): I 21.3 - ST elevation (STEMI) myocardial infarction of unspecified site
[2024-03-01] MEDS: ACETAMINOPHEN 325 MG TAB PO PRN (09:31)
[2024-03-01] MEDS: ATORVASTATIN 40 MG TAB PO SCH (09:32)
[2024-03-01] MEDS: PANTOprazole 40 MG TAB PO SCH (09:32)
[2024-03-01] MEDS: POTASSIUM CHLORIDE CRTAB 20 MEQ TABCR PO STA (09:32)
[2024-03-01] MEDS: ASPIRIN 81 MG ECTAB PO SCH (09:32)
[2024-03-01 09:45] LABS: Magnesium 1.9 mg/dl (1.7-2.4); Phosphorus 3.2 mg/dl (2.5-4.9)
[2024-03-01] MEDS ORDERED: LORazepam 2 MG/1 ML VIAL IV PRN ×3 (10:05)
[2024-03-01] MEDS ORDERED: Ativan IV Alcohol Withdrawal--Active Protocol IV PRN (10:05)
--- NOTE | 2024-03-01 10:11 | XCELERA ---
[id number] [id number]
[2024-03-01] MEDS ORDERED: GLUCOSE 40% GEL 15 GM TUBE PO PRN (10:15)
[2024-03-01] MEDS ORDERED: DEXTROSE 50% 50 ML SYRINGE IV PRN (10:15)
[2024-03-01] MEDS ORDERED: GLUCAGON FOR INJ 1 MG VIAL SQ PRN (10:15)
[2024-03-01] MEDS ORDERED: GLUCOSE 10 TAB/TUBE PO PRN (10:15)
[2024-03-01] MEDS ORDERED: CARBOHYDRATES FOR HYPOGLYCEMIA PO PRN (10:15)
[2024-03-01] MEDS: METOPROLOL TARTRATE 25 MG TAB PO SCH (11:05)
[2024-03-01] MEDS: lisinopril 20 MG TAB PO SCH (11:05)
[2024-03-01] MEDS: INSULIN ASPART PER UNIT CHARGE SC SCH (11:07)
[2024-03-01] MEDS ORDERED: ICU Protocol for HYPERglycemia SCH (11:30)
--- NOTE | 2024-03-01 13:50 | Electrocardiogram Report ---
Test Reason : Blood Pressure : */* mmHG Vent. Rate : 87 BPM Atrial Rate : 87 BPM P-R Int : 172 ms QRS Dur : 110 ms QT Int : 360 ms P-R-T Axes : 59 -14 98 degrees QTcB Int : 433 ms Normal sinus rhythm Inferior infarct T wave abnormality, consider anterolateral ischemia ACUTE AK / STEMI Consider right ventricular involvement in acute inferior infarct Abnormal ECG When compared with ECG of 28-Feb-2018 15:43, Significant changes have occurred Confirmed by Javan Cortez ([id number]) on 03/01/2024 1:50:34 PM Referred By: REFERRED SELF Confirmed By: Javan Cortez
--- NOTE | 2024-03-01 13:56 | Electrocardiogram Report ---
Test Reason : Blood Pressure : */* mmHG Vent. Rate : 80 BPM Atrial Rate : 80 BPM P-R Int : 174 ms QRS Dur : 102 ms QT Int : 422 ms P-R-T Axes : 65 -24 90 degrees QTcB Int : 486 ms Normal sinus rhythm Anterior infarct , age undetermined Inferior infarct (cited on or before 27-Sep-2013) Abnormal ECG When compared with ECG of 01-Mar-2024 04:09, (unconfirmed) Serial changes of evolving Anterior infarct ST no longer elevated in Inferior leads ST depression has replaced ST elevation in Anterior leads ST no longer depressed in Lateral leads QT has lengthened Confirmed by Javan Cortez ([id number]) on 03/01/2024 1:55:52 PM Referred By: REFERRED SELF Confirmed By: Javan Cortez
[2024-03-01] MEDS: LABETALOL HCL IV 5 MG/ML 20ML IV STA (14:32)
[2024-03-01] MEDS: fentaNYL citrate PF 100 MCG/2 ML VIAL IV ONE (14:50)
[2024-03-01] MEDS ORDERED: STAT IV Infusion **Titration per Protocol STA (16:08)
[2024-03-01] MEDS: NITROGLYCERIN/D5W 100MCG/ML 250 ML IV SCH (16:24)
[2024-03-01] MEDS: TICAGRELOR 90 MG TAB PO SCH (21:35)
--- NOTE | 2024-03-01 23:19 | Cardiac Catheterization ---
[facility] Data: Public Service Director Cardiac Status Clinical evaluation leading to the procedure CAD Presenation: STEMI Anginal Classification: CCS IV Diagnostic Physicians Name: Bhavesh Austin MD Closure Device Recommendations: PCI without planned CABG Cardiac Cath Procedure Full Procedure Date March 01, 2024 Pre-Procedure Diagnosis Pre-Procedure Diagnosis: STEMI AUC Score AUC Score: 8 Post-Procedure Diagnosis Post-Procedure Diagnosis: Severe CAD, Successful PCI and Normal Intracardiac Pressures Procedure(s) Performed Procedure(s) Performed: Coronary Angiography, Left Heart Cath, Drug Eluting Stent and IABP Principal Librarian Bhavesh Austin MD Pediatric Assistant(s) Robbie Estimated Blood Loss Estimated Blood Loss: 45 Medication(s) Medication(s): Fentanyl, Heparin, Lidocaine 1%, Nicardipine, Nitroglycerin and Versed Medication(s): Ticagrelor Summary of Findings Indication: STEMI/Heart Alert Access: 6 Fr slender right radial artery, 8 Fr right HEDIS MANAGER under ultrasound guidance Catheters: EBU 3.5 guide, JR4 guide, AR-1 guide Findings: LM -normal caliber, luminal irregularities with 20% distal stenosis. LAD -medium caliber, diffuse ostial/proximal disease up to 98%, severe diffuse mid LAD in-stent restenosis up to 95%, 30 to 40% mid disease after stent. Distal vessel without significant disease and HEATH II flow initially as wraps around apex. Jailed medium D2 with 50% ostial stenosis. Ramusmedium caliber, 30% proximal disease Circumflex -small caliber, 80% ostial, diffuse mid segment disease up to 8090%. Small left PLB without significant disease RCA -dominant, small medium caliber, diffuse proximal to mid disease, 90% mid at takeoff of acute marginal. Earlydistal RCA subtotally occluded. PDA/PLB partially dkqx-mw-klumc collaterals LVEDP -5 -- PCI -- Antithrombotic therapy: Heparin, ticagrelor Procedure: During initial angiography patient noted to have severe multivessel CAD but HEATH II-III flow throughout. Noted to have lgog-pp-wjflh collaterals. Patient was initially largely chest pain-free, ST changes improved and decision was to transfer to tertiary center for CABG evaluation. Right HEDIS MANAGER accessed under ultrasound guidance and 8 Fr sheath placed. IABP placed to level of mainstem bronchus bifurcation in descending aorta Augmenting appropriately at one-to-one During placement, DP patient began noting recurrence of severe chest pain. Repeat angiography of left system showed worsening flow in LAD with near subtotal acute ostial occlusion. Decision made to proceed with PCI of LAD. Left main cannulated with EBU 3.5 guide Auto Parker 50 wire passed across lesion into distal vessel Prowater wire placed into ramus Proximal to mid LAD lesion predilated with 2.5 compliant balloon. Mid LAD in- stent restenosis further dilated with 3.0 NC balloon Mid LAD stented with 3.0 x 33 mm Xience drug-eluting stent overlapping entire length of prior stent Second MARY KAY 3.5 x 23 mm Xience placed from ostium and overlapping proximal aspect of initial stent Stents post-dilated with 4.0 noncompliant balloon IC vasodilators administered for spasm Post procedure HEATH 3 flow, stents well expanded with minimal residual stenosis and no apparent cardiac complications. HEATH-3 flow in jailed second diagonal. Improved collateral flow to RCA. Patient endorsed improved but still ongoing chest pain. Attempt made to intervene on RCA. RCA cannulated with AL-1 guide. Multiple attempts made to cross earlydistal subtotal occlusion with pilot safety inspector 50, whisper, Fielder XT wires but unsuccessful. Distal RCA behaves more like chronic lesion. Wires removed and no apparent complications post attempted PCI. Arterial Closure: TR band Summary: 1. Severe multivessel CAD Acute 98% ostial LAD, diffuse proximal disease and mid LAD in-stent restenosis up to 95% Diffuse RCA disease, 90% mid, chronic subtotal earlydistal RCA occlusion. PDA/PLB fill from wuou-ez-floyp collaterals Small circumflex 80% ostial, 80-90% mid 2. Normal intracardiac filling pressure 3. Successful IABP placement for coronary perfusion, support during complex PCI 4. Successful PCI of ostial to mid LAD with 2 new drug-eluting stents (3.5 x 23, 3.0 x 33 mm Xience; postdilated with 4.0 NC; overlapping entirety of prior LAD stents). Recommendations: Admit to ICU for continued monitoring Loaded with ticagrelor 180 mg in Public Service Director Continue dual-antiplatelet therapy for at least 1 year, likely extended P2Y12 in the setting of multivessel disease and overlapping stents Trend troponins until peak, Check Echo Continue support with IABP. If remains hemodynamically stable and chest pain- free plan to remove IABP later today when ACT <150 Plan to medically manage residual CAD including chronic subtotal RCA if remains chest pain-free Continue ASCVD second prevention. Restart beta-mackenzie, GISELA as BP allows. High-dose statin. Smoking cessation. Consult cardiac Rehab Hemodynamics Rest Ao:: 148/100/122 Final Ao: 128/95/100 LV: 107/5 Recommendations Recommendations: PCI without planned CABG Specimens Specimens: None Radiation Exposure (mGy) 7739 Contrast (mls) 215 Anesthesia Moderate 8132-3814 Procedural Complication(s) None Disposition ICU I attest to the content of the Intraoperative Record and any orders documented therein. Any exceptions are noted below. [facility] Card Cath Procedure Codes Cardiac Catheterization Procedure 1: Cardiovascular Cath Procedures: 29287 Coronaries and LHC (+/-LV) Therapeutic Services & Ancillary Procedure 1: Cardiovascular Tx and Anc Procedures: 11344 Ultrasonic Guidance Vascular Access Procedure 2: Cardiovascular Tx and Anc Procedures: 03756 IABP Insertion Moderate Sedation Procedure 1: Sedation/Anesthesia: 70335 Mod Sedation by the same physician;Init15 Min Child Age 5 & Up Procedure 2: Sedation/Anesthesia: 10491 Mod Sedation by the same physician; Ea [id number] Minutes Stenting Procedure 1: Cardiovascular Stent Procedures: 11351 Perc transluminal revascularization of acute sub/total occl, aMI PG Care Time/CCT Total # of Minutes Spent Total Time Spent with Patient: Total time spent is greater than 50% in coordination of care (as documented) at patient's floor/unit and/or counseling patient:
[2024-03-01] MEDS: oxyCODONE HCL IR 5 MG TAB (IMMEDIATE RELEASE) PO PRN (23:44)
[2024-03-01] MEDS: ONDANSETRON INJ 2 MG/ML 2 ML VIAL IV PRN (23:45)
[2024-03-02 04:59] LABS: Basophils # (auto) 0.05 K/uL (0.00-0.20); Basophils % (auto) 0.4 %; Eosinophils % (auto) 0.7 %; Hematocrit (blood only) 42.8 % (42.0-52.0); Hemoglobin 14.2 g/dl (14.0-18.0); Immature Granulocytes # (auto) 0.05 K/uL (0.01-0.20); Immature Granulocytes % (auto) 0.4 %; Lymphocytes # (auto) 2.83 K/uL (1.20-3.40); Mean Corpuscular Hemoglobin 30.7 pg (25.0-34.0); Mean Corpuscular Hgb Conc 33.2 g/dL (32.0-36.0); Mean Corpuscular Volume 92.6 fL (80.0-100.0); Monocytes # (auto) 0.62 K/uL (0.11-0.59); Monocytes % (auto) 4.6 %; Neutrophils % (auto) 72.9 %; Platelet Count 169 K/uL (130-400); RDW Coefficient of Variation 12.9 % (11.5-14.5); RDW Standard Deviation 43.8 fL (36.4-46.3); Red Blood Count 4.62 M/uL (4.70-6.10); White Blood Count 13.45 K/ul (4.8-10.8)
[2024-03-02 05:10] LABS: BUN Creatinine Ratio 13.8 (10-20); Calcium 9.1 mg/dl (8.6-10.3); Chol HDL Ratio 3.5 (0-5); Potassium 3.8 mmol/L (3.5-5.1)
[2024-03-02] MEDS: POTASSIUM CHLORIDE CRTAB 20 MEQ TABCR PO STA (06:04)
[2024-03-02 07:23] LABS: Estimated Average Glucose 214 mg/dl; Hemoglobin A1C 9.1 % (4.5-5.6)
--- NOTE | 2024-03-02 07:37 | Critical Care Progress Note ---
Date of Service March 02, 2024 Assessment & Plan (1) STEMI (ST elevation myocardial infarction): (2) Hyperlipidemia: (3) CAD (coronary artery disease): (4) Impaired glucose tolerance: (5) Marijuana use: (6) Alcohol use disorder: (7) Tobacco abuse: Plan -- STEMI Status post drug-eluting stent x 2 in LAD Patient does have significant collaterals because of chronic occlusion of the RCA He was complaining of significant pain for which intra-aortic balloon pump was placed --> discontinued evening of 03-01-24 Patient requiring nitro drip for persistent chest pain Continue with dual antiplatelet therapy with high-dose statin TSH within normal limits 2D echo 03/01/2024: EF 35-40%, apical akinesis, mild anterior/septal/inferior hypokinesis, normal RV size and function --Transaminitis Could be from STEMI Another possibility is heavy alcohol use Continue to monitor -- Hypertension On metoprolol 25 mg twice daily as well as lisinopril 20 mg at home Resume the home medications -- Current smoker Approximately [id number] smoking history --Impaired glucose ICU hypoglycemia protocol -- Heavy alcohol use Drinks 6-12 beers on a daily basis Per the patient on CIWA protocol --Prophylaxis VTE: IPC GI: Pantoprazole Lines: Peripheral, intra-aortic balloon pump from the right groin Diet: Cardiac Plan: In/out: +68 mL, urine output 1350 Patient did have some drop in hemoglobin, will repeat H&H later today Tylenol for pain Potassium being replaced Given the heavy alcohol use we will put the patient on CIWA protocol Try to titrate off nitroglycerin drip. If the patient will be able to be titrated off then consideration to downgrade will be made I have personally spent 37 minutes of critical care time in the direct management of this patient. This is a life/limb threatening event. This includes time spent evaluating patient, direct bedside care, chart review, placing orders, interpretation of diagnostic studies, discussion with consultants, patient, and family members, as well as other required patient management activities. This time is exclusive of all separately billable procedures, and teaching time and separate from and in addition to any other critical care service time. Please note the above document was generated using voice recognition software. It may contain grammatical, syntax or spelling errors. Admission and Anticipated Discharge Date Admission Date: March 01, 2024 Subjective Patient seen and examined at bedside. No acute distress, no adverse events overnight He was still on nitroglycerin drip at 10 mcg/min He stated no significant chest pain Overnight he did have some pain in the right groin as well as at the site of IV catheters in the forearm bilaterally which is mild Positive flatulence Fair appetite, no nausea vomiting Denies any shortness of breath He was saturating well on room air, heart rate was in the low 80s, systolic blood pressure 120 Review of Systems 2 Review of Systems: All systems reviewed & are unremarkable except as noted in Subjective Physical Exam 2 Physical Exam: Constitutional: No acute distress HEENT: EOMI, PERRLA Respiratory system: Decreased air entry bilaterally, no wheeze, no rhonchi, no crackles CVS: S1-S2 positive, no murmurs or gallops Abdomen: Soft, nontender, nondistended, positive bowel sounds x4 Extremities: +2 pulses bilaterally left radialis/bilateral dorsalis pedis, no cyanosis, no edema Neuro: Awake alert oriented x3 Psych: Normal mood and affect G/U: No Aguilar Skin: no rashes, warm and dry Lymphatic: no cervical or axillary lymphadenopathy Results & Data Results & Data Vital Signs (Past 12 Hours) Vital Signs Pulse Resp BP Pulse Ox O2 Del Method 03/02/24 07:09 71 20 116/69 92 Room Air 03/02/24 00:00 66 03/01/24 21:45 81 20 120/77 96 Room Air 03/01/24 21:02 77 19 121/78 95 03/01/24 20:44 76 22 117/76 95 Room Air 03/01/24 20:08 72 19 124/76 95 03/01/24 20:00 Room Air 03/01/24 19:47 73 17 95 Room Air Laboratory Results 03/02/24 04:01 03/02/24 04:01 Coding Level of Care Code 61404 CRITICAL CARE 1ST 30-74M Diagnoses STEMI (ST elevation myocardial infarction) I21.3 Involved coronary artery: unspecified coronary artery Hyperlipidemia E78.5 CAD (coronary artery disease) I25.10 Impaired glucose tolerance R73.02 Marijuana use F12.90 Alcohol use disorder F10.90 Tobacco abuse Z72.0 (1) STEMI (ST elevation myocardial infarction) Involved coronary artery: unspecified coronary artery Qualified Code(s): I 21.3 - ST elevation (STEMI) myocardial infarction of unspecified site
[2024-03-02 08:11] LABS: Albumin Level 3.9 gm/dl (3.4-5.0); Bilirubin Direct 0.2 mg/dl (0-0.2); Bilirubin,Total 0.9 mg/dl (0.2-1.0); Total Protein 6.6 gm/dl (6.0-8.3)
[2024-03-02 12:07] LABS: Hematocrit (blood only) 44.3 % (42.0-52.0); Hemoglobin 14.6 g/dl (14.0-18.0)
--- NOTE | 2024-03-02 13:22 | Cardiology Progress Note ---
Date of Service March 02, 2024 Assessment & Plan (1) STEMI (ST elevation myocardial infarction): Plan: Post PCI with 2 MARY KAY to LAD 03/01/2024 Residual severe chronic subtotal RCA occlusion with [id number]-[id number] collaterals, severe diffuse disease and small circumflex 2. Ischemic cardiomyopathyEF 35 to 40% 3. Tobacco/alcohol abuse 4. Type 2 [id number] 9.1 5. Transaminitis Chest pain-free this morning. Troponins peaked. Hemodynamically and electrically stable No apparent access site complications right radial, right BUSINESS CONSULT No signs of heart failure on exam From a cardiac standpoint okay with transfer to telemetry today. Wean off nitroglycerin infusion Continue DAPT with aspirin, ticagrelor while admitted Due to insurance issues at discharge ideally switch to prasugrel if affordable or if not an option clopidogrel (would need loading dose of either) Continue current statin Continue current metoprolol, lisinopril. Will consider adding MRA as BP allows SGLT2 if becomes an option from insurance standpoint We talked about smoking cessation Long-term plan on medical management of chronic RCA/circumflex disease. May need additional antianginal therapy. Possible discharge tomorrow. Admission and Anticipated Discharge Date Admission Date: March 01, 2024 Subjective Feeling well this morning. No recurrent chest pain. Has been up walking around room. Mild tenderness at right wrist, right groin access sites. Telemetry reviewedno events Review of Systems Review of Systems: All systems reviewed & are unremarkable except as noted in HPI & below Physical Exam Physical Exam: General: Comfortable HEENT: Sclerae anicteric Lungs: Clear to auscultation bilaterally Cardiac: Regular rate and rhythm, no murmurs. Vascular: Right radial artery access site with no ecchymosis, hematoma. Distal pulse and sensation intact. Right BUSINESS CONSULT access site, mild ecchymosis, tender but no hematoma, intact pulse Abdomen: Soft, nontender Extremities: Well perfused, no peripheral edema Neuro: Nonfocal Psych: Alert orient x3, normal affect and mood Results & Data Vital Signs (Past 12 Hours) Vital Signs Temp Pulse Resp BP Pulse Ox O2 Del Method 03/02/24 12:00 64 16 108/71 96 03/02/24 11:06 62 19 104/72 94 03/02/24 10:09 69 20 116/77 97 03/02/24 09:06 87 22 102/81 92 03/02/24 08:06 71 22 124/73 94 03/02/24 08:00 98.4 F 03/02/24 07:09 71 20 116/69 92 Room Air PG Care Time/CCT Total # of Minutes Spent Total Time Spent with Patient: Total time spent is greater than 50% in coordination of care (as documented) at patient's floor/unit and/or counseling patient: Coding Level of Care Code 01462 SUB INP/OBS CARE 3/50MIN Diagnoses STEMI (ST elevation myocardial infarction) I21.3 Involved coronary artery: unspecified coronary artery (1) STEMI (ST elevation myocardial infarction) Involved coronary artery: unspecified coronary artery Qualified Code(s): I21.3 - ST elevation (STEMI) myocardial infarction of unspecified site
--- NOTE | 2024-03-02 13:59 | Hospitalist Progress Note ---
Date of Service March 02, 2024 Assessment & Plan (1) STEMI (ST elevation myocardial infarction): Plan: 49-year-old male with a history of coronary disease previous stent placed in 2018 presents with chest pain concern for STEMI taken emergently to the [facility] where the patient had in-stent stenosis in his LAD and had 2 drug-eluting stents placed in his LAD. Patient previous had a STEMI in 2014 was noncompliant with medications previous tobacco use and also alcohol and substance abuse. arrives to icu on balloon pump HFrEF not in exacerbation EF 35-40% Post PCI with 2 MARY KAY to LAD 03/01/2024 Residual severe chronic subtotal RCA occlusion with [id number] collaterals severe diffuse disease and small circumflex Continue DAPT with aspirin, ticagrelor while admitted Due to insurance issues at discharge ideally switch to prasugrel if affordable or if not an option clopidogrel (would need loading dose of either) Continue current statin Continue current metoprolol, lisinopril. Will consider adding MRA as BP allows SGLT2 if becomes an option from insurance standpoint given HFrEF on lisinopril (2) Chronic alcohol use: Plan: pt on awss scale continue to survey for withdrawal no signs of withdrawal smoking cessation counselling offered (3) Diabetes: Plan: elevated a1c to 9.1 will have education and discuss options Admission and Anticipated Discharge Date Admission Date: March 01, 2024 Subjective pt in bathroom, did have nitro gtt overnight, now off, no additional CP balloon pump removed 03/01, site is c/d/i Physical Exam Physical Exam: Pleasant, no immediate distress, at bedside no chest pain, cardiac exam is regular lungs are clear balloon pump in right groin, distal pulses right leg strong Results & Data Results & Data Vital Signs (Past 12 Hours) Vital Signs Temp Pulse Resp BP Pulse Ox O2 Del Method 03/02/24 12:00 64 16 108/71 96 03/02/24 11:06 62 19 104/72 94 03/02/24 10:09 69 20 116/77 97 03/02/24 09:06 87 22 102/81 92 03/02/24 08:06 71 22 124/73 94 03/02/24 08:00 98.4 F 03/02/24 07:09 71 20 116/69 92 Room Air Laboratory Results reviewed cbc reviewed chemistry reviewed elevated HGBa1c PG Care Time/CCT Total # of Minutes Spent Total Time Spent with Patient: Total time spent is greater than 50% in coordination of care (as documented) at patient's floor/unit and/or counseling patient: Coding Level of Care Code 00370 SUB INP/OBS CARE 350MIN Diagnoses STEMI (ST elevation myocardial infarction) I21.3 Involved coronary artery: unspecified coronary artery Chronic alcohol use Z72.89 Diabetes E11.9 (1) STEMI (ST elevation myocardial infarction) Involved coronary artery: unspecified coronary artery Qualified Code(s): I21.3 - ST elevation (STEMI) myocardial infarction of unspecified site
[2024-03-03 04:20] LABS: Basophils # (auto) 0.06 K/uL (0.00-0.20); Basophils % (auto) 0.5 %; Eosinophils # (auto) 0.14 K/uL (0.00-0.50); Eosinophils % (auto) 1.2 %; Hematocrit (blood only) 41.8 % (42.0-52.0); Immature Granulocytes # (auto) 0.04 K/uL (0.01-0.20); Immature Granulocytes % (auto) 0.3 %; Lymphocytes # (auto) 2.37 K/uL (1.20-3.40); Lymphocytes % (auto) 20.6 %; Mean Corpuscular Hemoglobin 30.5 pg (25.0-34.0); Mean Corpuscular Hgb Conc 33.5 g/dL (32.0-36.0); Mean Corpuscular Volume 91.1 fL (80.0-100.0); Mean Platelet Volume 13.2 fL (9.4-12.4); Monocytes # (auto) 0.61 K/uL (0.11-0.59); Monocytes % (auto) 5.3 %; Neutrophils # (auto) 8.26 K/uL (1.40-6.50); Neutrophils % (auto) 72.1 %; Platelet Count 148 K/uL (130-400); RDW Coefficient of Variation 12.6 % (11.5-14.5); RDW Standard Deviation 42.3 fL (36.4-46.3); Red Blood Count 4.59 M/uL (4.70-6.10); White Blood Count 11.48 K/ul (4.8-10.8)
[2024-03-03 04:33] LABS: BUN Creatinine Ratio 18.8 (10-20); Calcium 9.4 mg/dl (8.6-10.3); Creatinine Clr Calc Pharmacy 147.1 ml/min; Potassium 3.9 mmol/L (3.5-5.1)
--- NOTE | 2024-03-03 07:49 | Critical Care Progress Note ---
Date of Service March 03, 2024 Assessment & Plan (1) STEMI (ST elevation myocardial infarction): (2) Hyperlipidemia: (3) CAD (coronary artery disease): (4) Impaired glucose tolerance: (5) Marijuana use: (6) Alcohol use disorder: (7) Tobacco abuse: Plan -- STEMI Status post drug-eluting stent x 2 in LAD Patient does have significant collaterals because of chronic occlusion of the RCA He was complaining of significant pain for which intra-aortic balloon pump was placed --> discontinued evening of 03-01-24 Patient requiring nitro drip for persistent chest pain Continue with dual antiplatelet therapy with high-dose statin TSH within normal limits 2D echo 03/01/2024: EF 35-40%, apical akinesis, mild anterior/septal/inferior hypokinesis, normal RV size and function --Transaminitis Could be from STEMI Another possibility is heavy alcohol use Continue to monitor -- Hypertension On metoprolol 25 mg twice daily as well as lisinopril 20 mg at home Resume the home medications -- Current smoker Approximately 56-rgzi-flxj smoking history --Impaired glucose ICU hypoglycemia protocol -- Heavy alcohol use Drinks 6-12 beers on a daily basis Per the patient on CIWA protocol --Prophylaxis VTE: IPC GI: Pantoprazole Lines: Periphera Diet: Cardiac Plan: In/out: -258, urine output 1601 Of nitroglycerin drip for more than 24 hours Tylenol for pain Potassium being replaced Continue with CIWA protocol Disposition as per primary team Please note the above document was generated using voice recognition software. It may contain grammatical, syntax or spelling errors.Any formal questions or concerns about the content, text or information contained within the body of this dictation should be directly addressed to the provider for clarification. Admission and Anticipated Discharge Date Admission Date: March 01, 2024 Subjective Patient seen and examined at bedside. No acute distress, notable symptoms overnight He was saturating 98% on room air, systolic blood pressure was in the 120s with heart rate in the high 70s Denies any headache, no nausea, no vomiting No more pain No chest pain, no shortness of breath Patient's fianc was in the room Review of Systems 2 Review of Systems: All systems reviewed & are unremarkable except as noted in Subjective Physical Exam 2 Physical Exam: Constitutional: No acute distress HEENT: EOMI, PERRLA Respiratory system: Good air entry bilaterally, no wheeze, no rhonchi, no crackles CVS: S1-S2 positive, no murmurs or gallops Abdomen: Soft, nontender, nondistended, positive bowel sounds x4 Extremities: +2 pulses bilaterally left radialis/bilateral dorsalis pedis, no cyanosis, no edema Neuro: Awake alert oriented x3 Psych: Normal mood and affect G/U: No Aguilar Skin: no rashes, warm and dry Lymphatic: no cervical or axillary lymphadenopathy Results & Data Results & Data Vital Signs (Past 12 Hours) Vital Signs Temp Pulse Resp BP Pulse Ox O2 Del Method 03/03/24 07:00 60 15 139/93 97 03/03/24 06:06 64 16 142/98 H 94 Room Air 03/03/24 05:06 59 L 17 116/88 91 Room Air 03/03/24 04:00 60 16 121/93 94 Room Air 03/03/24 03:09 54 L 18 123/86 97 Room Air 03/03/24 02:27 62 17 121/64 95 Room Air 03/03/24 01:27 57 L 16 136/82 96 Room Air 03/03/24 00:00 57 L 17 105/70 96 Room Air 03/03/24 00:00 36.7 C 03/03/24 00:00 55 L 03/02/24 23:06 54 L 16 127/84 93 Room Air 03/02/24 22:06 59 L 17 107/78 95 Room Air 03/02/24 21:03 65 20 107/78 97 Room Air 03/02/24 20:03 71 19 112/80 96 Room Air 03/02/24 20:00 Room Air Laboratory Results 03/03/24 03:55 03/03/24 03:55 Coding Level of Care Code 31220 SUB INP/OBS CARE 2/35MIN Diagnoses STEMI (ST elevation myocardial infarction) I21.3 Involved coronary artery: unspecified coronary artery Hyperlipidemia E78.5 CAD (coronary artery disease) I25.10 Impaired glucose tolerance R73.02 Marijuana use F12.90 Alcohol use disorder F10.90 Tobacco abuse Z72.0 (1) STEMI (ST elevation myocardial infarction) Involved coronary artery: unspecified coronary artery Qualified Code(s): I 21.3 - ST elevation (STEMI) myocardial infarction of unspecified site
[2024-03-03 08:33] LABS: Phosphorus 3.3 mg/dl (2.5-4.9)
[2024-03-03] MEDS: PRASugrel TAB 10 MG TAB PO ONE (08:40)
[2024-03-03] MEDS: glyBURIDE 2.5 MG TAB PO SCH (08:41)
[2024-03-03 09:01] VITALS: RESP 16; TEMP 98.6; O2SAT 95
[2024-03-03 09:52] VITALS: BP 126/64; PULSE 71
[2024-03-03] MEDS: POTASSIUM CHLORIDE CRTAB 20 MEQ TABCR PO ONE (09:57)
--- NOTE | 2024-03-03 16:18 | Discharge Summary ---
Discharge Summary Date of Service March 03, 2024 Principal Dx & Hospital Course #1 = Principal Diagnosis (1) STEMI (ST elevation myocardial infarction): 49-year-old male with a history of coronary disease previous stent placed in 2018 presents with chest pain concern for STEMI taken emergently to the [facility] where the patient had in-stent stenosis in his LAD and had 2 drug-eluting stents placed in his LAD. Patient previous had a STEMI in 2014 was noncompliant with medications previous tobacco use and also alcohol and substance abuse. arrives to icu on balloon pump HFrEF not in exacerbation EF 35-40% Post PCI with 2 MARY KAY to LAD 03/01/2024 Residual severe chronic subtotal RCA occlusion with lcsw-ks-siuhq collaterals severe diffuse disease and small circumflex Continue DAPT with aspirin, ticagrelor while admitted Due to insurance issues at discharge ideally switch to prasugrel Continue current statin Continue current metoprolol, lisinopril. Will consider adding MRA as BP allows SGLT2 if becomes an option from insurance standpoint given HFrEF on lisinopril (2) Chronic alcohol use: pt on awss scale continue to survey for withdrawal no signs of withdrawal smoking cessation counselling offered (3) Diabetes: elevated a1c to 9.1 will have education and start low dose glipizide Notes For Next Care Provider pt urged to be compliant given much instruction on diabetes, did not use metformin in wake of cardiac cath and cath dye but certainly maybe good option in future or sglt2's but insurance maybe issue Admission HPI Per Admitting Provider pt presented with stuttering angina and concern for STEMI history of Mi in 2013 with stent. in stent stenosis in 2018 with repeat stent, history of compliance challenges, iscmo with EF 45-50% did have emergent stent x 2 of instent stenosis LAD and arrives to icu on inta arotic balloon pump Discharge Exam awake and alert cardiac exam is regular Discharge Plan Discharge Items Patient Disposition: Home - Self-Care Reason For Visit: STEMI Discharge Diagnosis: heart attack from previous stent being blocked 2 new stents placed diabetes Activity: Per Instructions section Activity Comment: limit strenuous activity until follow up with [facility]man Non-emergency contact: Primary Care Provider and Acid Painter Call non-emergency contact if: your symptoms worsen Follow-up/Referrals: PCP,NO [Primary Care Provider] - Diet: Carb Consistent or DM2 Addtl Attending Provider Instructions: ACTIVITY RECOMMENDATIONS: Excess manipulation of the wrist should be avoided for the next 24-48 hours. * No lifting over 2 pounds (approximately a 1/2 gallon of milk) with the utilized arm for 24 hours. * No strenuous activity such as bowling or tennis for 3 days. * Keep the site of the procedure covered with a bandage for 24 hours. *You may shower the day after the procedure. Do not take a tub bath or submerge the puncture site in water for the next 3 days. *Do not operate any motorized equipment for 3 days. SPECIAL CARE INSTRUCTIONS: The site may be slightly bruised and sore following your procedure. Should any of the following occur, contact the Dr. who performed your procedure. 1. Redness/inflammation, swelling, chills, or fever, or colored drainage at procedure site within 3-7 days after your procedure. 2. Coldness, discoloration, ongoing numbness, severe pain, or swelling. Expect mild tingling of hand and tenderness at the puncture site for up to three days. If this persists beyond three days, or other symptoms develop, notify the Dr. who performed your procedure. BLEEDING: If the procedure site on your wrist begins to bleed, do not panic 1. Place 1 or 2 fingers firmly just slightly above the insertion site to stop the bleeding. You may be able to feel your pulse as you hold pressure. 2. Lift your finger after 5 minutes to see if the bleeding has stopped. 3. Once the bleeding has stopped, gently wipe the wrist area clean with a bandage. * If the bleeding from your wrist does not stop after 10 minutes, or if there is a large amount of bleeding or spurting, call 911 (do not drive yourself to the hospital). SKIN IRRITATION: * You may experience some redness and/or swelling in the area where radiation was administered. If any skin irritation occurs, please contact your family physician. FOLLOW UP VISIT: Keep any scheduled doctor appointments. Addtl Teacher Specialist Provider Instructions: you did have an arterial line in your groin making lifting and bending a risk for injuring the site until healed, limit lifting and bending for about a week Your medicines are very important to help your heart heal, please look into [facility] and get your medicines after discharge to continue taking them an prevent any additional injury to your heart Please stop smoking Please stop use of alcohol Your blood work shows you are a Diabetic at this time, please try to reduce the amount of sugar (carbohydrates) in your diet healthy foods with a focus on vegetables will be a good diet for you Pending Studies at Discharge: No [facility]Alone Forms[facility] Medications and DC Order Prescriptions: New atorvastatin 80 mg tablet 80 mg PO DAILY Qty: 30 4RF glyburide 2.5 mg Tablet 2.5 mg PO QDB Qty: 30 2RF prasugrel 10 mg tablet 10 mg PO DAILY Qty: 30 3RF nitroglycerin 0.4 mg tablet, sublingual 0.4 mg sublingual Q5M Qty: 1 3RF Rx Instructions: take as needed if no help or recurrent chest pain seek medical attention Continued aspirin [Adult Low Dose Aspirin] 81 mg tablet,delayed release (DR/EC) 81 mg PO DAILY lisinopril 20 mg tablet 20 mg PO DAILY Qty: 90 3RF metoprolol tartrate 25 mg tablet 25 mg PO Q12H Qty: 60 3RF Discharge Orders: Discharge Order (Routine); Ordered 03/03/24 Ordered By: Kuldip Spain/Other Patient Handouts: Diabetes: Meal Planning, Type 2 Diabetes Admission Data Admit Date/Time: 03/01/24 05:08 Attending Provider: Kuldip Cornejo Admit Provider: Filemon Garces Primary Care Provider: PCP,NO Other Providers: Kyleigh Asif Other Interventions: Discharge Summary Assessment (RN) Last Done: 03/03/24 09:50 Hospital Stay Data Consultations 03/01/24 08:23 Consult Wind Turbine Mechanical Engineer Routine 03/01/24 08:41 Consult Wind Turbine Mechanical Engineer Stat Procedures Performed Operation Date: 03/01/24 04:30 Actual Procedures p Cineradiography w/Routine Exam - Bhavesh Austin MD p Aspiration/PCI w/MARY KAY for Stemi - Bhavesh Austin MD p Intra-Aortic Balloon Insertion(Not Applicable) - Bhavesh Austin MD Diagnostic Imagining Performed 03/01/24 04:34 CL Cath Imgs for PACS use only Stat Pending Results Patient Have Any Pending Studies at Discharge: No Discharge Instructions Given to Patient (Per Discharging Provider) ACTIVITY RECOMMENDATIONS: Excess manipulation of the wrist should be avoided for the next 24-48 hours. * No lifting over 2 pounds (approximately a 1/2 gallon of milk) with the utilized arm for 24 hours. * No strenuous activity such as bowling or tennis for 3 days. * Keep the site of the procedure covered with a bandage for 24 hours. *You may shower the day after the procedure. Do not take a tub bath or submerge the puncture site in water for the next 3 days. *Do not operate any motorized equipment for 3 days. SPECIAL CARE INSTRUCTIONS: The site may be slightly bruised and sore following your procedure. Should any of the following occur, contact the Dr. who performed your procedure. 1. Redness/inflammation, swelling, chills, or fever, or colored drainage at procedure site within 3-7 days after your procedure. 2. Coldness, discoloration, ongoing numbness, severe pain, or swelling. Expect mild tingling of hand and tenderness at the puncture site for up to three days. If this persists beyond three days, or other symptoms develop, notify the Dr. who performed your procedure. BLEEDING: If the procedure site on your wrist begins to bleed, do not panic 1. Place 1 or 2 fingers firmly just slightly above the insertion site to stop the bleeding. You may be able to feel your pulse as you hold pressure. 2. Lift your finger after 5 minutes to see if the bleeding has stopped. 3. Once the bleeding has stopped, gently wipe the wrist area clean with a bandage. * If the bleeding from your wrist does not stop after 10 minutes, or if there is a large amount of bleeding or spurting, call 911 (do not drive yourself to the hospital). SKIN IRRITATION: * You may experience some redness and/or swelling in the area where radiation was administered. If any skin irritation occurs, please contact your family physician. FOLLOW UP VISIT: Keep any scheduled doctor appointments. Total Time Total Time Spent Total Time Spent (In Minutes): It required greater than 30 minutes to prepare this patient for discharge. Coding Level of Care Code 96551 INP/OBS DISCH >30 MIN Diagnoses STEMI (ST elevation myocardial infarction) I21.3 Involved coronary artery: unspecified coronary artery Chronic alcohol use Z72.89 Diabetes E11.9
--- NOTE | 2024-03-04 14:25 | Electrocardiogram Report ---
Test Reason : Blood Pressure : */* mmHG Vent. Rate : 78 BPM Atrial Rate : 78 BPM P-R Int : 182 ms QRS Dur : 114 ms QT Int : 444 ms P-R-T Axes : 60 -26 99 degrees QTcB Int : 506 ms Normal sinus rhythm Inferior infarct (cited on or before 27-Sep-2013) Anteroseptal infarct (cited on or before 27-Sep-2013) Prolonged QT Abnormal ECG When compared with ECG of 01-Mar-2024 09:41, No significant change Confirmed by Oral Browne ([id number]) on 03/04/2024 2:25:00 PM Referred By: REFERRED SELF Confirmed By: Oral Browne
== END 2024-03-03 10:40 | disposition home or self-care (01) | DRG 270 ==
LOC: ED 03:59 → 1E 04:50 → SUATTDRO 05:08 → 1E 05:08